=== PATIENT | female | born 1930 | race Caucasian/White ===

== ENCOUNTER 2019-11-24 18:26 | Inpatient (IN) | payer MEDICARE ==
[~2019-11-24] VITALS: Ht 157.5 cm; Wt 68.1 kg
[~2019-11-24 18:26] MED LIST: OXYC20TA42 PO
[2019-11-24] MEDS ORDERED: DICL100G19 TP (18:42)
[2019-11-24] MEDS ORDERED: DIGO125T85 PO (18:42)
[2019-11-24] MEDS ORDERED: BUME1TAB21 PO ×2 (18:42)
[2019-11-24] MEDS ORDERED: OXYC5CAP2 PO (18:42)
[2019-11-24] MEDS ORDERED: MULT-257 PO (18:42)
[2019-11-24] MEDS ORDERED: CALCIUM/VITAMIN D (18:42)
[2019-11-24] MEDS ORDERED: OXYC10TA47 PO (18:42)
[2019-11-24] MEDS ORDERED: RIVA15TA PO (18:42)
--- NOTE | 2019-11-24 18:43 | NUR ---
THIS IS A 88 YO F BIB EMS FROM [facility] W/ C/O DRY PRODUCTIVE COUGH AND FEVERS THAT STARTED YESTERDAY. PT STATES THAT SHE DID NOT TAKE TYLENOL BECAUSE SHE DID NOT WANT TO MASK SYMPTOMS. PT IS FEBRILE. OTHER VS WDL. DENIES RECENT CONTACT WITH COVID+ PT. DENIES RECENT TRAVEL. HX: PULM HTN, WEARS 4L AT HOME, PAROXYSMAL AFIB. CONNECTED TO ALL MONITORING. CALL LIGHT IN REACH. AWAITING ED EVAL.
[2019-11-24] MEDS ORDERED: SODIUM CHLORIDE 0.9% 1,000 ML IV ONE (18:48)
--- NOTE | 2019-11-24 18:57 | NUR ---
MED BHAVYA FROM PHARMACY.
[2019-11-24] MEDS ORDERED: ACETAMINOPHEN 650 MG SUPP PR ONE (19:00)
[2019-11-24] MEDS ORDERED: SODIUM CHLORIDE FLUSH 10ML SYR IVF ONE (19:00)
--- NOTE | 2019-11-24 19:00 | NUR ---
MED REC COMPLETE.
[2019-11-24 19:21] LABS: BASOPHILS % (AUTO) 0 % (0-1); EOSINOPHILS % (AUTO) 0 % (1-7); LYMPHOCYTES # (AUTO) 0.64 x10^3/uL (1-3.4); LYMPHOCYTES % (AUTO) 6 % (22-44); MD NO; MEAN CORPUSCULAR HEMOGLOBIN 30.5 pg (27.0-34.8); MEAN CORPUSCULAR HGB CONC 32.9 g/dL (32.4-35.8); MEAN CORPUSCULAR VOLUME 92.7 fL (80-100); MEAN PLATELET VOLUME 7.5 fL (7.4-10.4); MONOCYTES # (AUTO) 0.41 x10^3/uL (0.2-0.8); MONOCYTES % (AUTO) 4 % (2-9); NEUTROPHILS # (AUTO) 9.38 x10^3/uL (1.8-6.8); NEUTROPHILS % (AUTO) 90 % (42-75); PLATELET COUNT 134 x10^3/uL (130-400); RED BLOOD COUNT 3.92 x10^6/uL (3.82-5.3); RED CELL DISTRIBUTION WIDTH 14.4 % (9.6-15.2)
--- NOTE | 2019-11-24 19:23 | NUR ---
PT MEDICATED PER EMAR.
--- NOTE | 2019-11-24 19:26 | NUR ---
THIS TECH COMPLETED EKG.
[2019-11-24 19:31] LABS: ALANINE AMINOTRANSFERASE 20 U/L (12-78); ALBUMIN 3.1 g/dL (3.4-5.0); ANION GAP 6 mmol/L (5-15); CALCIUM 8.6 mg/dL (8.5-10.1); CHLORIDE 105 mmol/L (98-107); CREATININE 0.97 mg/dL (0.55-1.02)
[2019-11-24 19:34] LABS: ALKALINE PHOSPHATASE 66 U/L (45-117); BILIRUBIN,TOTAL 0.7 mg/dL (0.2-1.0); TOTAL PROTEIN 6.3 g/dL (6.4-8.2)
--- NOTE | 2019-11-24 19:45 | NUR ---
BREAK RN: PATIENT USING CELLPHONE. NO COMPLAINTS NOTED AT THIS TIME.
[2019-11-24] MEDS ORDERED: LEVOFLOXACIN/PMX 750MG/150ML 150 ML IV ONE (20:00)
[2019-11-24] MEDS ORDERED: AZITHROMYCIN 500 MG in SODIUM CHLORIDE 0.9% 250 ML IV ONE (20:00)
[2019-11-24] MEDS: SODIUM CHLORIDE 0.9% 1,000 ML IV SCH (20:26)
[2019-11-24] MEDS ORDERED: ACETAMINOPHEN 325 MG TABLET PO PRN (20:30)
[2019-11-24] MEDS ORDERED: LEVOFLOXACIN/PMX 750MG/150ML 150 ML IV SCH (20:30)
[2019-11-24] MEDS ORDERED: POLYETHYLENE GLYCOL 17 GM PACKET PO PRN (20:30)
[2019-11-24] MEDS ORDERED: ONDANSETRON ODT 4 MG PO PRN (20:30)
[2019-11-24] MEDS ORDERED: BISACODYL 10 MG SUPP PR PRN (20:30)
[2019-11-24] MEDS ORDERED: TEMPLATE NON-FORMULARY MED. (Diclofenac Sodium (Voltaren) 1 APPLIC) TP SCH (20:30)
[2019-11-24] MEDS ORDERED: GUAIFENESIN/DM 200-20MG, 10ML UDC PO PRN (20:30)
--- NOTE | 2019-11-24 20:31 | NUR ---
MED BHAVYA FROM PHARMACY.
--- NOTE | 2019-11-24 20:48 | NUR ---
AFTER SPEAKING W/ PHARMACY MS OXYCONTIN ER IS ONLY AVAILABLE 15MG TABLETS AND WE ARE UNABLE TO SPLIT THEM. TELEPHONE CALL TO ASKING TO CHANGE ORDER. STATES THAT HE WILL CHANGE ORDER TO 1 TIME 15MG DOSE. AWAITING ORDER CHANGE.
[2019-11-24] MEDS: BUMETANIDE 1 MG TABLET PO SCH (21:15)
--- NOTE | 2019-11-24 21:28 | NUR ---
URINE COLLECTED AND SENT TO LAB.
--- NOTE | 2019-11-24 22:29 | NUR ---
PT RESTING ON GURNEY W/ CALL LIGHT IN REACH AND SIDE RAILS UPX2. DENIES FURTHER NEEDS AT THIS TIME.
--- NOTE | 2019-11-24 22:37 | NUR ---
PT TRANSFERED TO [facility] W/ STAND BY ASSIST. NOW RESTING ON GURNEY W/ SIDE RAILS UP X2 AND CALL LIGHT IN REACH. DENIES FURTHER NEEDS AT THIS TIME.
--- NOTE | 2019-11-24 23:10 | NUR ---
PT TRANSFERED TO THE [facility] W/ A STAND BY ASSIST.
--- NOTE | 2019-11-24 23:20 | NUR ---
REPORT GIVEN TO MARTIN JAY. PT IS READY FOR TRANSPORT AT THIS TIME. 1L NS AND LEVAQUIN STILL INFUSING AT TIME OF TRANSFER.
--- NOTE | 2019-11-24 23:27 | NUR ---
PT TRANSPORTED TO FLOOR.
[2019-11-24 23:54] VITALS: BP 150/69
[2019-11-25 02:23] VITALS: BP 154/67
[2019-11-25 05:38] LABS: BASOPHILS # (AUTO) 0.04 x10^3/uL (0-0.1); BASOPHILS % (AUTO) 0 % (0-1); EOSINOPHILS % (AUTO) 0 % (1-7); LYMPHOCYTES # (AUTO) 1.55 x10^3/uL (1-3.4); LYMPHOCYTES % (AUTO) 16 % (22-44); MD NO; MEAN CORPUSCULAR HEMOGLOBIN 30.9 pg (27.0-34.8); MEAN CORPUSCULAR HGB CONC 33.4 g/dL (32.4-35.8); MEAN CORPUSCULAR VOLUME 92.4 fL (80-100); MEAN PLATELET VOLUME 7.8 fL (7.4-10.4); MONOCYTES # (AUTO) 0.47 x10^3/uL (0.2-0.8); MONOCYTES % (AUTO) 5 % (2-9); NEUTROPHILS # (AUTO) 7.56 x10^3/uL (1.8-6.8); NEUTROPHILS % (AUTO) 79 % (42-75); PLATELET COUNT 123 x10^3/uL (130-400); RED BLOOD COUNT 3.68 x10^6/uL (3.82-5.3); RED CELL DISTRIBUTION WIDTH 14.5 % (9.6-15.2)
[2019-11-25 05:44] LABS: ANION GAP 4 mmol/L (5-15); CALCIUM 8.1 mg/dL (8.5-10.1); CHLORIDE 108 mmol/L (98-107); CREATININE 0.88 mg/dL (0.55-1.02)
[2019-11-25] MEDS ORDERED: POTASSIUM CHLORIDE 20 MEQ TAB.ER.PRT ONE (07:59)
[2019-11-25] MEDS: POTASSIUM CHLORIDE 10 MEQ TABLET.ER PO SCH (08:00)
[2019-11-25 08:39] VITALS: BP 143/61
[2019-11-25] MEDS: MULTIVITAMIN 1 TABLET PO SCH (09:00)
[2019-11-25] MEDS: SODIUM CHLORIDE 0.9% 1,000 ML IV SCH (09:00)
[2019-11-25] MEDS: BUMETANIDE 1 MG TABLET PO SCH ×2 (09:00→21:16)
[2019-11-25] MEDS: SENNA/DOCUSATE TABLET PO SCH (09:00)
[2019-11-25] MEDS: DIGOXIN 0.125 MG TABLET PO SCH (09:00)
[2019-11-25 13:04] VITALS: BP 138/58
[2019-11-25] MEDS: RIVAROXABAN 15 MG TABLET PO SCH (17:04)
[2019-11-25 19:45] VITALS: BP 178/70
[2019-11-25] MEDS: SODIUM CHLORIDE FLUSH 10ML SYR IVF SCH (21:16)
[2019-11-25 21:43] VITALS: BP 160/64
[2019-11-26 00:40] VITALS: BP 167/61
[2019-11-26] MEDS ORDERED: POTASSIUM CHLORIDE 20 MEQ TAB.ER.PRT ONE (07:35)
[2019-11-26] MEDS: SODIUM CHLORIDE FLUSH 10ML SYR IVF SCH ×2 (08:01→22:45)
[2019-11-26] MEDS: POTASSIUM CHLORIDE 10 MEQ TABLET.ER PO SCH (08:01)
[2019-11-26] MEDS: MULTIVITAMIN 1 TABLET PO SCH (08:01)
[2019-11-26] MEDS: BUMETANIDE 1 MG TABLET PO SCH ×2 (08:02→22:45)
[2019-11-26] MEDS: SENNA/DOCUSATE TABLET PO SCH ×2 (08:02→08:15)
[2019-11-26] MEDS: DIGOXIN 0.125 MG TABLET PO SCH (08:02)
[2019-11-26 08:04] VITALS: BP 143/65
[2019-11-26 12:15] VITALS: BP 157/65
[2019-11-26] MEDS: RIVAROXABAN 15 MG TABLET PO SCH (16:57)
[2019-11-26] MEDS: AMLODIPINE 5 MG TABLET PO SCH (16:57)
[2019-11-26 21:55] VITALS: BP 150/65
[2019-11-26] MEDS ORDERED: LEVOFLOXACIN/PMX 500MG/100ML 100 ML IV SCH (22:00)
[2019-11-26] MEDS ORDERED: morphine SULFATE ORAL.CONC 20 MG/ML ONE (22:22)
[2019-11-26] MEDS ORDERED: morphine SULFATE ORAL.CONC 20 MG/ML PO ONE (22:30)
[2019-11-26] MEDS: LEVOFLOXACIN 500 MG TABLET PO SCH (22:45)
[2019-11-27 02:50] VITALS: BP_SYST 150; BP_SYST 153; BP_DIAS 64; BP_DIAS 65
[2019-11-27] MEDS ORDERED: morphine SULFATE ORAL.CONC 20 MG/ML PO SCH (03:00)
[2019-11-27] MEDS: morphine SULFATE ORAL.CONC 20 MG/ML PO SCH ×2 (03:00→08:06)
[2019-11-27 08:00] VITALS: BP 144/67
[2019-11-27] MEDS: SODIUM CHLORIDE FLUSH 10ML SYR IVF SCH ×2 (08:05→21:25)
[2019-11-27] MEDS: BUMETANIDE 1 MG TABLET PO SCH ×2 (08:05→14:39)
[2019-11-27] MEDS: AMLODIPINE 5 MG TABLET PO SCH (08:05)
[2019-11-27] MEDS: MULTIVITAMIN 1 TABLET PO SCH (08:05)
[2019-11-27] MEDS: DIGOXIN 0.125 MG TABLET PO SCH (08:05)
[2019-11-27] MEDS: POTASSIUM CHLORIDE 10 MEQ TABLET.ER PO SCH (08:05)
[2019-11-27] MEDS: SENNA/DOCUSATE TABLET PO SCH (08:06)
[2019-11-27] MEDS ORDERED: morphine SULFATE ORAL.CONC 20 MG/ML PO PRN (10:00)
[2019-11-27] MEDS: OxyconTIN ER 10 MG TAB.ER PO SCH ×2 (11:10→21:25)
[2019-11-27] MEDS ORDERED: AMLODIPINE 5 MG TABLET PO SCH (13:15)
[2019-11-27 13:59] VITALS: BP 127/67
[2019-11-27] MEDS: RIVAROXABAN 15 MG TABLET PO SCH (17:48)
[2019-11-27 19:18] VITALS: BP 132/63
[2019-11-28 00:09] VITALS: BP 139/65
[2019-11-28] MEDS: OXYcodone IR 5MG TABLET PO PRN ×3 (02:34→15:30)
[2019-11-28 08:00] VITALS: BP 130/63
[2019-11-28] MEDS: DIGOXIN 0.125 MG TABLET PO SCH (08:54)
[2019-11-28] MEDS: POTASSIUM CHLORIDE 10 MEQ TABLET.ER PO SCH (08:54)
[2019-11-28] MEDS: MULTIVITAMIN 1 TABLET PO SCH (08:54)
[2019-11-28] MEDS: AMLODIPINE 5 MG TABLET PO SCH (08:54)
[2019-11-28] MEDS: SODIUM CHLORIDE FLUSH 10ML SYR IVF SCH ×2 (08:55→21:56)
[2019-11-28] MEDS: BUMETANIDE 1 MG TABLET PO SCH ×2 (08:55→15:30)
[2019-11-28] MEDS: OxyconTIN ER 10 MG TAB.ER PO SCH ×2 (08:57→21:56)
[2019-11-28] MEDS: SENNA/DOCUSATE TABLET PO SCH (08:57)
[2019-11-28 14:00] VITALS: BP 120/60
[2019-11-28] MEDS: RIVAROXABAN 15 MG TABLET PO SCH (17:03)
[2019-11-28 19:38] VITALS: BP 127/45
[2019-11-28] MEDS: LEVOFLOXACIN 500 MG TABLET PO SCH (21:56)
[2019-11-29 02:58] VITALS: BP 141/52
[2019-11-29 06:45] VITALS: BP 153/62
[2019-11-29] MEDS: DIGOXIN 0.125 MG TABLET PO SCH (08:03)
[2019-11-29] MEDS: BUMETANIDE 1 MG TABLET PO SCH ×2 (08:03→13:51)
[2019-11-29] MEDS: SODIUM CHLORIDE FLUSH 10ML SYR IVF SCH (08:03)
[2019-11-29] MEDS: POTASSIUM CHLORIDE 10 MEQ TABLET.ER PO SCH (08:03)
[2019-11-29] MEDS: SENNA/DOCUSATE TABLET PO SCH (08:03)
[2019-11-29] MEDS: OxyconTIN ER 10 MG TAB.ER PO SCH (08:03)
[2019-11-29] MEDS: MULTIVITAMIN 1 TABLET PO SCH (08:03)
[2019-11-29] MEDS: AMLODIPINE 5 MG TABLET PO SCH (08:03)
[2019-11-29] MEDS ORDERED: AMLO-150 PO (11:00)
[2019-11-29] MEDS ORDERED: LEVOFLOXACIN 500 MG TABLET PO SCH (11:00)
[2019-11-29] MEDS ORDERED: LEVO500T47 PO (11:00)
[2019-11-29 12:15] VITALS: BP 150/79
== END 2019-11-29 14:00 | disposition home or self-care (01) | DRG 194 ==
LOC: ED 18:37 → EDIP 19:48 → 3E 23:40
PROVIDERS: ADMIT Internal Medicine; ATTEND Hospitalist
DX: J15.9 Unspecified bacterial pneumonia (principal); J96.11 Chronic respiratory failure with hypoxia; E87.2 Acidosis; I38 Endocarditis, valve unspecified; I27.20 Pulmonary hypertension, unspecified; M41.9 Scoliosis, unspecified; Z96.653 Presence of artificial knee joint, bilateral; D72.810 Lymphocytopenia; D72.829 Elevated white blood cell count, unspecified; Z03.818 Encounter for observation for suspected exposure to other biological agents ruled out; Z66 Do not resuscitate; Z79.01 Long term (current) use of anticoagulants; Z86.711 Personal history of pulmonary embolism; Z88.0 Allergy status to penicillin; Z88.1 Allergy status to other antibiotic agents; Z99.81 Dependence on supplemental oxygen
CPT/HCPCS: 36415; 71045; 80048; 80053; 80162; 83605; 84145; 85025; 87040; 87070; 87205; 87449; 93005; 96360; 99291; G0378; J0456; J1956; J7030; J7050